=== PATIENT | female | born 1990 | race Caucasian/White ===

== ENCOUNTER → 2018-07-14 | Outpatient (REF) ==
[~2018-07-14] MED LIST: CLEOCIN HCL300 MG PO; NO HOME MEDICATIONS; NORCO 325 MG-51 TAB PO; PRENATAL VITAMI1 TA5 PO; VITAMINS
== END ==
LOC: ZLAB.WCH 16:47
DX: Z01.89 Encounter for other specified special examinations (principal)

== ENCOUNTER 2019-08-11 22:26 | Emergency (ER) | payer BC ==
[~2019-08-11] VITALS: Ht 160 cm; Wt 68.2 kg
[2019-08-11 22:29] VITALS: BP 146/95; TEMP 97.1
[2019-08-11] MEDS ORDERED: DESYREL 100MG100 MG PO (22:31)
[2019-08-11] MEDS ORDERED: AMOXICILLIN 50500 MG PO (23:06)
[2019-08-11 23:15] VITALS: PULSE 64
== END 2019-08-11 23:15 | disposition home or self-care (01) ==
LOC: COL.ER 22:26
DX: J01.90 Acute sinusitis, unspecified (principal); F17.210 Nicotine dependence, cigarettes, uncomplicated

== ENCOUNTER → 2021-04-14 | Outpatient (CLI) | payer BC ==
[~2021-04-14] MED LIST changes: +AMOXICILLIN 50500 MG PO; +DESYREL 100MG100 MG PO
== END ==
LOC: COL.RAD 13:37
DX: M79.672 Pain in left foot (principal)